=== PATIENT | male | born 1970 | race Caucasian/White ===

== ENCOUNTER 2020-05-28 08:02 | Emergency (ER) | payer MEDICAID, SELFPAY ==
[2020-05-28 08:03] VITALS: BP 134/71; PULSE 106; RESP 15; TEMP 36.2; O2SAT 100; BMI 24.4
--- NOTE | 2020-05-28 08:16 | CT_ITS ---
STUDY: CT FACIAL BONES WITH CONTRAST REASON FOR EXAM: Male, 50 years old. FACIAL ABSCESS? SWOLLEN UPPER LIP AND NOSE RADIATION DOSAGE (If Supplied By Facility): CTDIvol = ( 29.38 ) mGy, DLP = ( 584.19 ) mGycm TECHNIQUE: The patient was scanned in a multi detector CT scanner. Transaxial imaging was performed following the intravenous administration of IV 100mL Isovue-300. Sagittal and coronal images were reconstructed. Individualized dose optimization techniques were used for this CT. COMPARISON: None. FINDINGS: Just below the tip of the nose, within the soft tissues, there is a curvilinear hypodensity which could represent small abscess measuring roughly 2.6 cm long by 6 mm wide. Subjacent soft tissue swelling and edema. No evidence of osseous abnormality. CT/Sinus/Facial Bone WITH Contras IMPRESSION: Curvilinear hypodensity within the soft tissues just below the tip of the nose. Possible small abscess Electronically Signed: Андрей Fields DO at 9:47 EDT Tel , Service support ,
[2020-05-28] MEDS: Ketorolac 15 MG/ML Vial IV (08:27)
--- NOTE | 2020-05-28 08:29 | ED.DCSUM_ITS ---
- ER Visit Summary Date of Service: 05/28/20 Chief Complaint: Facial swelling History of Present Illness: The patient is a 50 M patient had a recent cold. He noticed some swelling to his nose. He tried some antibiotic ointment for possible infection, and then today he woke up and his lower lip has swelling as well. He has pain to the area. No fever or systemic symptoms. Physical Examination: Afebrile and vital signs unremarkable. Head and neck unremarkable except for some swelling to his nasal vestibule, possibly septum, and upper lip. The swelling is diffuse and tender. No fluctuance. No drainage or bleeding noted. Otherwise exam unremarkable. Test Results: Basic labs and CT ordered. Emergency Department Course and Treatment: I am concerned for a facial infection versus abscess. We will check imaging and blood work. Treatment pending results. White count is elevated, otherwise labs unremarkable. CT showed a possible nasal abscess. This was discussed with Dr. Thurman will follow up with the pat lisa on Saturday. Patient was given a referral to his office. He was treated with clindamycin. He should return to the ED if he has new or worsening issues or if he cannot make it till Saturday. Treatment Plan: As above Disposition: Discharge Impression: Facial abscess This note was generated with [employer] dictation software. It may contain incorrect words, spelling, and punctuation that were not noted in review of the chart prior to signing ED Disposition - Plan for ED Patient: Disposition: Home or Assisted Living Instructions: ED Abscess Antibiotic Treatment Only Prescriptions: Clindamycin [Cleocin] 300 mg PO 4X/DAY #80 cap Prescription Printed traMADol [Ultram] 50 mg PO Q6H PRN PRN 3 Days #12 tab PRN Reason: Pain Prescription Printed Referrals: Shady Thurman MD [STAFF PHYSICIAN] -
[2020-05-28 08:44] LABS: Absolute Neutrophil Count 13.1 X10^3/uL (2.0-7.7); Basophil# 0.05 X10^3/uL; Basophil% 0.3 % (0-1); Eosinophils% 1.3 % (0-5); Hematocrit 44.9 % (40-54); Hemoglobin 14.3 g/dL (13.0-16.5); Lymphocyte % 8.3 % (19-41); Mean Corp Hgb Conc 31.8 g/dL (32-36); Mean Corpuscular Hgb 30.5 pg (27.0-32.0); Mean Corpuscular Volume 95.7 fL (80-94); Mean Platelet Vol. 9.6 fl (6.2-12.0); Monocyte% 6.4 % (0-10); NRBC Flagged by Analyzer 0 % (0-5); Neutrophil # 13.09 X10^3/uL (2.7-7.7); Neutrophil % 83.3 % (47-70); Platelet Count 267 K/mm3 (150-450); RBC Distribution Width CV 14.3 % (11.6-14.6); RBC Distribution Width SD 50.4 fl (35.1-43.9); Red Blood Count 4.69 M/mm3 (4.6-6.2); White Blood Count 15.7 K/mm3 (4.4-11.0)
[2020-05-28 09:04] LABS: Anion Gap 8 (5-15); BUN 15 mg/dL (7-18); BUN/Creat Ratio 15.6 RATIO (10-20); Chloride 107 mmol/L (98-107); Creatinine, Serum 0.96 mg/dL (0.70-1.30); EST Glomerular Filtration Rate 87 mL/min (>60); Est Glom Filt Rate - Afr Amer 105 mL/min (>60); Estimated Creatinine Clearance 101.72 ml/min; Glucose 142 mg/dL (74-106); Potassium 3.8 mmol/L (3.5-5.1); Sodium Level 139 mmol/L (136-145)
[2020-05-28 10:23] VITALS: BP 136/76; PULSE 84; RESP 16; O2SAT 98
--- NOTE | 2020-05-28 11:01 | ED.DEP ---
ED Disposition - Plan for ED Patient: Instructions: ED Abscess Antibiotic Treatment Only Prescriptions: Clindamycin [Cleocin] 300 mg PO 4X/DAY #80 cap Prescription Printed traMADol [Ultram] 50 mg PO Q6H PRN PRN 3 Days #12 tab PRN Reason: Pain Prescription Printed Referrals: Shady Thurman MD [STAFF PHYSICIAN] -
== END 2020-05-28 11:22 | disposition home or self-care (01) ==
PROVIDERS: Emergency Provider Emergency Medicine
DX: L02.01 Cutaneous abscess of face (principal); Z72.0 Tobacco use
CPT/HCPCS: 70487; 80048; 85025; 96374; 99282; Q9967; A4216